=== PATIENT | male | born 1995 | race Two or more races ===

== ENCOUNTER 2020-12-21 21:18 | Observation (INO) | payer SELFPAY ==
[~2020-12-21] VITALS: Ht 167.6 cm; Wt 97.3 kg
[2020-12-21] MEDS ORDERED: LIDOCAINE 1% Multi-Dose 20 ML VIAL. INJ ONE (21:45)
[2020-12-22] VITALS (10 sets, daily range): BP systolic 105–154; BP diastolic 49–97
--- NOTE | 2020-12-22 | RAD ---
Study: XR SHOULDER_RIGHT 2+ VIEWS Indication: Right shoulder injury. Comparison: None. Findings: No acute fracture. Glenohumeral and acromioclavicular joint alignment is maintained. The partially as sessed right-sided ribs are grossly intact. Somewhat irregular soft tissues at the lateral shoulder though not well evaluated by radiography. Impression: No acute fracture or malalignment at the right shoulder. Electronically signed by: KANDIS PANTOJA MD (12/21/2020 11:58 PM) [facility]
--- NOTE | 2020-12-22 00:01 | RAD ---
Study: XR HAND_LEFT 3 VIEWS Indication: Left hand injury. Comparison: None. Findings: No displaced fracture. Alignment is within normal limits. Maintained joint spaces. No retained radiop aque foreign body. Impression: No acute osseous abnormality. Electronically signed by: KANDIS PANTOJA MD (12/21/2020 11:59 PM) [facility]
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
[2020-12-22] MEDS ORDERED: fentaNYL PF VIAL 100 MCG/2 ML VIAL ONE ×4 (02:09→12:19)
[2020-12-22] MEDS ORDERED: IV NORMAL SALINE 1000ML BAG 1,000 ML IV ONE (02:15)
[2020-12-22] MEDS ORDERED: fentaNYL PF VIAL 100 MCG/2 ML VIAL IVP ONE (02:15)
[2020-12-22] MEDS ORDERED: NEOMY/BACITR/POLYMYXIN OINT PACKET. TP ONE (02:47)
[2020-12-22 03:10] LABS: BILIRUBIN,URINE NEGATIVE (NEG); CLARITY,URINE CLEAR; COLOR,URINE YELLOW; NITRITE,URINE NEGATIVE (NEG); PH,URINE 5.5 (<5.0-8.0); PROTEIN,URINE NEGATIVE (NEG-TRACE); UROBILINOGEN,URINE 0.2 mg/dL (0.2 mg/dL)
[2020-12-22 03:16] LABS: AMPHETAMINE/METHAMPHETAMINE NEG (NEG); BARBITURATES NEG (NEG); BENZODIAZEPINES NEG (NEG); CANNABINOIDS NEG (NEG); COCAINE NEG (NEG); METHADONE NEG (NEG); OPIATES NEG (NEG); PHENCYCLIDINE NEG (NEG)
[2020-12-22 03:18] LABS: BASO # 0.1 x10^3/uL (0.0-0.2); BASO % 1 % (0-3); EOS # 0.1 x10^3/uL (0.0-0.7); EOS % 1 % (0-3); HEMATOCRIT 46.6 % (39.0-53.0); LYMPH # 1.9 x10^3/uL (1.0-4.8); LYMPH % 20 % (24-48); MEAN CORPUSCULAR HEMOGLOBIN 31 pg (25-35); MEAN CORPUSCULAR HGB CONC 34 g/dL (31-37); MEAN CORPUSCULAR VOLUME 89 fL (79-100); MONO # 0.8 x10^3/uL (0.0-1.1); MONO % 8 % (0-9); NEUT % 71 % (31-73); PLATELET COUNT 301 x10^3/uL (140-400); RED BLOOD COUNT 5.25 x10^6/uL (4.30-5.70); RED CELL DISTRIBUTION WIDTH 15.5 % (11.5-14.5); WHITE BLOOD COUNT 9.9 x10^3/uL (4.0-11.0)
[2020-12-22 03:21] LABS: CALCIUM 8.3 mg/dL (8.5-10.1); CREATININE 1.1 mg/dL (0.7-1.3); GFR 80.3
[2020-12-22 03:26] LABS: BACTERIA,URINE 0 /HPF (0-FEW); RBC,URINE 0 /HPF (0-2); WBC,URINE 0 /HPF (0-4)
[2020-12-22 03:27] LABS: ALBUMIN 3.7 g/dL (3.4-5.0); ALBUMIN/GLOBULIN RATIO 0.9 (1.0-1.7); TOTAL BILIRUBIN 0.5 mg/dL (0.2-1.0); TOTAL PROTEIN 7.6 g/dL (6.4-8.2)
[2020-12-22] MEDS ORDERED: ONDANSETRON PF 4 MG/2 ML VIAL. IV PRN ×2 (03:45→12:00)
[2020-12-22] MEDS: fentaNYL PF VIAL 100 MCG/2 ML VIAL IV PRN ×3 (04:30→19:23)
[2020-12-22] MEDS: IV NORMAL SALINE 1000ML BAG 1,000 ML IV SCH ×4 (04:33→22:22)
--- NOTE | 2020-12-22 07:41 | NUR ---
ADMIT NOTE The patient, MADELIN GASPAR, 25 y/o, M admitted by KEITH CALDERON MD, was given written information regarding hospital policies, unit procedures and contact persons. Patient orientated to room, unable to fully discuss plan of care and admit packet d/t language barrier; language interpreting service does not have a non destructive evaluation specialist for patient's primary language/dialect which pt identifies as "Turkic". Admission wound photos complete and consults notified. Patient reports no known allergies. Patient resting in bed, bed in lowest/locked position, and call light within reach; no other needs voiced at this time.
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
[2020-12-22] MEDS ORDERED: ROCURONIUM 50 MG/5 ML VIAL. ONE (09:17)
[2020-12-22] MEDS ORDERED: PROPOFOL 10 MG/ML (20ML) VIAL. IV ONE (09:17)
[2020-12-22] MEDS ORDERED: DEXAMETHASONE SOD PHOS 4 MG/ML VIAL ONE ×2 (09:17→10:01)
[2020-12-22] MEDS ORDERED: ONDANSETRON PF 4 MG/2 ML VIAL. ONE (09:17)
[2020-12-22] MEDS ORDERED: SUCCINYLCHOLINE 200 MG/10 ML VIAL. ONE (09:17)
[2020-12-22] MEDS ORDERED: LIDOCAINE 2% PF 5 ML VIAL. ONE (09:17)
[2020-12-22] MEDS ORDERED: MIDAZOLAM HCL/PF 2 MG/2 ML VIAL. ONE (09:19)
[2020-12-22] MEDS ORDERED: EPINEPHrine VIAL 30 MG/30 ML VIAL ONE (09:20)
[2020-12-22] MEDS ORDERED: BUPIVACAINE-EPI 0.25% 30 ML VIAL KIT. ONE ×2 (09:20)
--- NOTE | 2020-12-22 10:02 | NUR ---
SW following. Discussed with RN, pt from home with family, room air, npo, rapid COVID-19 negative. Pt having surgery today. Pt is Turkic speaking. SW will continue to follow.
[2020-12-22] MEDS ORDERED: GLYCOPYRROLATE 1 MG/5 ML VIAL. ONE (10:37)
[2020-12-22] MEDS ORDERED: NEOSTIGMINE METHYLSULFATE 5 MG/5 ML SYRINGE. ONE (10:38)
[2020-12-22] MEDS ORDERED: DIPH,PERTUSS(ACELL),TET VAC/PF 0.5 ML SYRINGE. VAX IM ONE (10:45)
[2020-12-22] MEDS ORDERED: SEVOFLURANE 61 TO 120 MINUTES. IH ONE (10:55)
[2020-12-22] MEDS ORDERED: KETOROLAC 30 MG/ML VIAL. ONE (11:02)
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
[2020-12-22] MEDS ORDERED: SODIUM PHOSPHATES 19/7GM 133 ML ENEMA. PR PRN (12:00)
[2020-12-22] MEDS ORDERED: 0.9 % SODIUM CHLORIDE 10 ML DISP.SYRIN. IV PRN (12:00)
[2020-12-22] MEDS ORDERED: LORazepam 0.5 MG TABLET PO PRN (12:00)
[2020-12-22] MEDS ORDERED: ZOLPIDEM 5 MG TABLET. PO PRN (12:00)
[2020-12-22] MEDS ORDERED: ACETAMINOPHEN 325 MG TABLET. PO PRN (12:00)
[2020-12-22] MEDS ORDERED: DOCUSATE SODIUM 100 MG CAPSULE. PO PRN (12:00)
[2020-12-22] MEDS ORDERED: IPRATRPIUM/ALBUTEROL 0.5/2.5MG 3 ML NEBU. NEB SCH (12:00)
[2020-12-22] MEDS ORDERED: guaiFENesin ORAL 200 MG/10 ML LIQUID. PO PRN (12:00)
[2020-12-22] MEDS: fentaNYL PF VIAL 100 MCG/2 ML VIAL IVP PRN ×2 (12:10→12:24)
[2020-12-22] MEDS ORDERED: ALBUTEROL SULFATE 2.5 MG/3 ML NEBU. NEB PRN (14:15)
--- NOTE | 2020-12-22 14:41 | PDOC2 ---
CONSULT Date of Consult Date of Consult DATE: 12/22/20 TIME: 14:37 Reason for Consult Reason for Consult: stabbing right shoulder Referring Physician Referring Physician: Dr. Clinton Identification/Chief Complaint Chief Complaint right shoulder pain Source Source: Chart review, Patient History of Present Illness Reason for Visit: 25 yo M s/p stabbing right shoulder. Pt is seen in post op s/p washout by ortho. Pt somewhat sedated but reports being comfortable and able to follow commands. Past Medical History Rheumatologic: No pertinent hx Infectious disease: No pertinent hx ENT: No pertinent hx Renal/: No pertinent hx Endocrine: No pertinent hx Past Surgical History Past Surgical History: Other (shoulder washout) Family History Family History: Hypertension Social History <1 pack per day ALCOHOL: heavy Drugs: None Current Problem List Problem List Problems Medical Problems: (1) Alcohol intoxication Status: Acute (2) Laceration without foreign body of right shoulder, initial encounter Status: Acute Current Medications Current Medications Current Medications Lidocaine HCl (Lidocaine 1% 20ml Vial) 40 ml 1X ONCE INJ Last administered on 12/21/20at 22:30; Start 12/21/20 at 21:45; Stop 12/21/20 at 21:46; Status DC Cefazolin Sodium/ Dextrose 50 ml @ 100 mls/hr 1X ONCE IV Last administered on 12/21/20at 22:30; Start 12/21/20 at 22:30; Stop 12/21/20 at 22:59; Status DC Fentanyl Citrate (Fentanyl 2ml Vial) 100 mcg STK-MED ONCE .ROUTE ; Start 12/22/20 at 02:09; Stop 12/22/20 at 02:09; Status DC Fentanyl Citrate (Fentanyl 2ml Vial) 100 mcg 1X ONCE IVP Last administered on 12/22/20at 02:15; Start 12/22/20 at 02:15; Stop 12/22/20 at 02:17; Status DC Sodium Chloride 1,000 ml @ 0 mls/hr 1X ONCE IV Last administered on 12/22/20at 02:16; Start 12/22/20 at 02:15; Stop 12/22/20 at 02:17; Status DC Neomycin/ Polymyxin/ Bacitracin (Triple Antibiotic Ointment) 1 pkt STK-MED ONCE TP ; Start 12/22/20 at 02:47; Stop 12/22/20 at 02:47; Status DC Ondansetron HCl (Zofran) 4 mg PRN Q8HRS PRN IV NAUSEA/VOMITING; Start 12/22/20 at 03:45; Stop 12/23/20 at 03:44 Fentanyl Citrate (Fentanyl 2ml Vial) 50 mcg PRN Q1HR PRN IV PAIN Last administe red on 12/22/20at 07:15; Start 12/22/20 at 03:45; Stop 12/23/20 at 03:44 Sodium Chloride 1,000 ml @ 75 mls/hr [id number] IV Last administered on 12/22/20at 04:33; Start 12/22/20 at 03:45; Stop 12/23/20 at 03:44 Propofol (Diprivan) 200 mg STK-MED ONCE IV ; Start 12/22/20 at 09:17; Stop 12/22/20 at 09:17; Status DC Lidocaine HCl (Lidocaine Pf 2% Vial) 5 ml STK-MED ONCE .ROUTE ; Start 12/22/20 at 09:17; Stop 12/22/20 at 09:17; Status DC Ondansetron HCl (Zofran) 4 mg STK-MED ONCE .ROUTE ; Start 12/22/20 at 09:17; Stop 12/22/20 at 09:17; Status DC Dexamethasone Sodium Phosphate (Decadron) 4 mg STK-MED ONCE .ROUTE ; Start 12/22/20 at 09:17; Stop 12/22/20 at 09:17; Status DC Succinylcholine Chloride (Anectine) 200 mg STK-MED ONCE .ROUTE ; Start 12/22/20 at 09:17; Stop 12/22/20 at 09:18; Status DC Rocuronium [place] (Zemuron) 50 mg STK-MED ONCE .ROUTE ; Start 12/22/20 at 09:17; Stop 12/22/20 at 09:18; Status DC Fentanyl Citrate (Fentanyl 2ml Vial) 100 mcg STK-MED ONCE .ROUTE ; Start 12/22/20 at 09:18; Stop 12/22/20 at 09:18; Status DC Midazolam HCl (Versed) 2 mg STK-MED ONCE .ROUTE ; Start 12/22/20 at 09:19; Stop 12/22/20 at 09:20; Status DC Cefazolin Sodium/ Dextrose 50 ml @ 100 mls/hr 1X PREOP PRN IV SEE COMMENTS Last administered on 12/22/20at 09:40; Start 12/22/20 at 09:30; Stop 12/22/20 at 14:18; Status DC Epinephrine HCl (Adrenalin) 30 mg STK-MED ONCE .ROUTE Last administered on 12/22/20at 10:20; Start 12/22/20 at 09:20; Stop 12/22/20 at 09:20; Status DC Bupivacaine HCl/ Epinephrine Bitart (Sensorcain-Epi 0.25% Kit) 30 ml STK-MED ON CE .ROUTE Last administered on 12/22/20at 10:20; Start 12/22/20 at 09:20; Stop 12/22/20 at 09:20; Status DC Bupivacaine HCl/ Epinephrine Bitart (Sensorcain-Epi 0.25% Kit) 30 ml STK-MED ONCE .ROUTE Last administered on 12/22/20at 10:20; Start 12/22/20 at 09:20; Stop 12/22/20 at 09:20; Status DC Dexamethasone Sodium Phosphate (Decadron) 4 mg STK-MED ONCE .ROUTE ; Start 12/22/20 at 10:01; Stop 12/22/20 at 10:01; Status DC Fentanyl Citrate (Fentanyl 2ml Vial) 100 mcg STK-MED ONCE .ROUTE ; Start 12/22/20 at 10:34; Stop 12/22/20 at 10:34; Status DC Glycopyrrolate (Robinul) 1 mg STK-MED ONCE .ROUTE ; Start 12/22/20 at 10:37; Stop 12/22/20 at 10:38; Status DC Neostigmine [place] (Neostigmine Methylsulfate) 5 mg STK-MED ONCE .ROUTE ; Start 12/22/20 at 10:38; Stop 12/22/20 at 10:38; Status DC Diphtheria/ Tetanus/Acell Pertussis (ADACEL TDap SYRINGE) 0.5 ml ONCE ONCE VAX IM ; Start 12/22/20 at 10:45; Stop 12/22/20 at 10:46; Status DC Sevoflurane (Ultane) 60 ml STK-MED ONCE IH ; Start 12/22/20 at 10:55; Stop 12/22/20 at 10:55; Status DC Ketorolac Tromethamine (Toradol 30mg Vial) 30 mg STK-MED ONCE .ROUTE ; Start 12/22/20 at 11:02; Stop 12/22/20 at 11:02; Status DC Cefazolin Sodium/ Dextrose 50 ml @ 100 mls/hr Q6H IV ; Start 12/22/20 at 16:00; Stop 12/23/20 at 04:29 Acetaminophen/ Hydrocodone Bitart (Lortab 7.5/325) 1 tab PRN Q4HRS PRN PO MODERATE PAIN; Start 12/22/20 at 11:30 Acetaminophen/ Hydrocodone Bitart (Lortab 7.5/325) 2 tab PRN Q4HRS PRN PO SEVERE PAIN; Start 12/22/20 at 11:30 Sodium Chloride (Normal Saline Flush) 3 ml QSHIFT PRN IV AFTER MEDS AND BLOOD DRAWS; Start 12/22/20 at 12:00 Sodium Chloride 1,000 ml @ 100 mls/hr Q10H IV ; Start 12/22/20 at 12:00 Ondansetron HCl (Zofran) 4 mg PRN Q4HRS PRN IV NAUSEA/VOMITING; Start 12/22/20 at 12:00 Zolpidem Tartrate (Ambien) 5 mg PRN QHS PRN PO INSOMNIA; Start 12/22/20 at 12:00 Acetaminophen (Tylenol) 650 mg PRN Q4HRS PRN PO TEMP OVER 100.4F OR MILD PAIN; Start 12/22/20 at 12:00 Sodium Monofluorophosphate (Fleet Adult) 133 ml PRN DAILY PRN OK CONSTIPATION; Start 12/22/20 at 12:00 Docusate Sodium (Colace) 100 mg PRN BID PRN PO HARD STOOLS; Start 12/22/20 at 12:00 Albuterol/ Ipratropium (Duoneb) 3 ml Q4H NEB ; Start 12/22/20 at 12:00; Stop 12/22/20 at 14:00; Status DC Guaifenesin (Robitussin) 200 mg PRN Q4HRS PRN PO COUGH; Start 12/22/20 at 12:00 Lorazepam (Ativan) 0.5 mg PRN Q4HRS PRN PO ANXIETY / AGITATION; Start 12/22/20 at 12:00 Fentanyl Citrate (Fentanyl 2ml Vial) 50 mcg PRN Q5MIN PRN IVP pain Last administered on 12/22/20at 12:24; Start 12/22/20 at 12:15 Fentanyl Citrate (Fentanyl 2ml Vial) 100 mcg STK-MED ONCE .ROUTE ; Start 12/22/20 at 12:19; Stop 12/22/20 at 12:19; Status DC Albuterol Sulfate (Ventolin Neb Soln) 2.5 mg PRN Q4HRS PRN NEB SHORTNESS OF BREATH; Start 12/22/20 at 14:15 Allergies Allergies: Coded Allergies: No Known Drug Allergies (Unverified , 04/11/15) ROS Review of System unobtainable Physical Exam General: Alert, Cooperative, No acute distress HEENT: Atraumatic Lungs: Normal air movement Abdomen: Soft, No tenderness Extremities: Other (right shoulder dressing in place, able to move all extremities) Vitals VITALS Vital Signs Date Time Temp Pulse Resp B/P (MAP) Pulse Ox O2 Delivery O2 Flow Rate FiO2 12/22/20 12:24 96 Room Air 12/22/20 12:10 98.8 60 15 117/64 98.8 12/22/20 11:10 8 Labs Labs Laboratory Tests Test 12/21/20 21:45 12/22/20 02:00 12/22/20 02:35 White Blood Count 9.9 x10^3/uL (4.0-11.0) Red Blood Count 5.25 x10^6/uL (4.30-5.70) Hemoglobin 16.0 g/dL (13.0-17.5) Hematocrit 46.6 % (39.0-53.0) Mean Corpuscular Volume 89 fL (79-100) Mean Corpuscular Hemoglobin 31 pg (25-35) Mean Corpuscular Hemoglobin Concent 34 g/dL (31-37) Red Cell Distribution Width 15.5 % (11.5-14.5) Platelet Count 301 x10^3/uL (140-400) Neutrophils (%) (Auto) 71 % (31-73) Lymphocytes (%) (Auto) 20 % (24-48) Monocytes (%) (Auto) 8 % (0-9) Eosinophils (%) (Auto) 1 % (0-3) Basophils (%) (Auto) 1 % (0-3) Neutrophils # (Auto) 7.0 x10^3/uL (1.8-7.7) Lymphocytes # (Auto) 1.9 x10^3/uL (1.0-4.8) Monocytes # (Auto) 0.8 x10^3/uL (0.0-1.1) Eosinophils # (Auto) 0.1 x10^3/uL (0.0-0.7) Basophils # (Auto) 0.1 x10^3/uL (0.0-0.2) Sodium Level 139 mmol/L (136-145) Potassium Level 4.0 mmol/L (3.5-5.1) Chloride Level 101 mmol/L (98-107) Carbon Dioxide Level 24 mmol/L (21-32) Anion Gap 14 (6-14) Blood Urea Nitrogen 13 mg/dL (8-26) Creatinine 1.1 mg/dL (0.7-1.3) Estimated GFR (Cockcroft-Gault) 80.3 BUN/Creatinine Ratio 12 (6-20) Glucose Level 78 mg/dL (70-99) Calcium Level 8.3 mg/dL (8.5-10.1) Total Bilirubin 0.5 mg/dL (0.2-1.0) Aspartate Amino Transf (AST/SGOT) 33 U/L (15-37) Alanine Aminotransferase (ALT/SGPT) 35 U/L (16-63) Alkaline Phosphatase 83 U/L (46-116) Total Protein 7.6 g/dL (6.4-8.2) Albumin 3.7 g/dL (3.4-5.0) Albumin/Globulin Ratio 0.9 (1.0-1.7) Ethyl Alcohol Level 197 mg/dL (0-10) Urine Color Yellow Urine Clarity Clear Urine pH 5.5 (<5.0-8.0) Urine Specific [place] 1.010 (1.000-1.030) Urine Protein Negative mg/dL (NEG-TRACE) Urine Glucose (UA) Negative mg/dL (NEG) Urine Ketones (Stick) Negative mg/dL (NEG) Urine Blood Negative (NEG) Urine Nitrite Negative (NEG) Urine Bilirubin Negative (NEG) Urine Urobilinogen Dipstick 0.2 mg/dL (0.2 mg/dL) Urine Leukocyte Esterase Negative (NEG) Urine RBC 0 /HPF (0-2) Urine WBC 0 /HPF (0-4) Urine Squamous Epithelial Cells Few /LPF Urine Bacteria 0 /HPF (0-FEW) Urine Opiates Screen Neg (NEG) Urine Methadone Screen Neg (NEG) Urine Barbiturates Neg (NEG) Urine Phencyclidine Screen Neg (NEG) Urine Amphetamine/Methamphetamine Neg (NEG) Urine Benzodiazepines Screen Neg (NEG) Urine Cocaine Screen Neg (NEG) Urine Cannabinoids Screen Neg (NEG) Urine Ethyl Alcohol Pos (NEG) SARS-CoV-2 RNA (TRE) Negative (Negative) SARS-CoV-2 Antigen (Rapid) Negative (NEGATIVE) Laboratory Tests Test 12/21/20 21:45 12/22/20 02:00 12/22/20 02:35 White Blood Count 9.9 x10^3/uL (4.0-11.0) Red Blood Count 5.25 x10^6/uL (4.30-5.70) Hemoglobin 16.0 g/dL (13.0-17.5) Hematocrit 46.6 % (39.0-53.0) Mean Corpuscular Volume 89 fL (79-100) Mean Corpuscular Hemoglobin 31 pg (25-35) Mean Corpuscular Hemoglobin Concent 34 g/dL (31-37) Red Cell Distribution Width 15.5 % (11.5-14.5) Platelet Count 301 x10^3/uL (140-400) Neutrophils (%) (Auto) 71 % (31-73) Lymphocytes (%) (Auto) 20 % (24-48) Monocytes (%) (Auto) 8 % (0-9) Eosinophils (%) (Auto) 1 % (0-3) Basophils (%) (Auto) 1 % (0-3) Neutrophils # (Auto) 7.0 x10^3/uL (1.8-7.7) Lymphocytes # (Auto) 1.9 x10^3/uL (1.0-4.8) Monocytes # (Auto) 0.8 x10^3/uL (0.0-1.1) Eosinophils # (Auto) 0.1 x10^3/uL (0.0-0.7) Basophils # (Auto) 0.1 x10^3/uL (0.0-0.2) Sodium Level 139 mmol/L (136-145) Potassium Level 4.0 mmol/L (3.5-5.1) Chloride Level 101 mmol/L (98-107) Carbon Dioxide Level 24 mmol/L (21-32) Anion Gap 14 (6-14) Blood Urea Nitrogen 13 mg/dL (8-26) Creatinine 1.1 mg/dL (0.7-1.3) Estimated GFR (Cockcroft-Gault) 80.3 BUN/Creatinine Ratio 12 (6-20) Glucose Level 78 mg/dL (70-99) Calcium Level 8.3 mg/dL (8.5-10.1) Total Bilirubin 0.5 mg/dL (0.2-1.0) Aspartate Amino Transf (AST/SGOT) 33 U/L (15-37) Alanine Aminotransferase (ALT/SGPT) 35 U/L (16-63) Alkaline Phosphatase 83 U/L (46-116) Total Protein 7.6 g/dL (6.4-8.2) Albumin 3.7 g/dL (3.4-5.0) Albumin/Globulin Ratio 0.9 (1.0-1.7) Ethyl Alcohol Level 197 mg/dL (0-10) Urine Color Yellow Urine Clarity Clear Urine pH 5.5 (<5.0-8.0) Urine Specific [place] 1.010 (1.000-1.030) Urine Protein Negative mg/dL (NEG-TRACE) Urine Glucose (UA) Negative mg/dL (NEG) Urine Ketones (Stick) Negative mg/dL (NEG) Urine Blood Negative (NEG) Urine Nitrite Negative (NEG) Urine Bilirubin Negative (NEG) Urine Urobilinogen Dipstick 0.2 mg/dL (0.2 mg/dL) Urine Leukocyte Esterase Negative (NEG) Urine RBC 0 /HPF (0-2) Urine WBC 0 /HPF (0-4) Urine Squamous Epithelial Cells Few /LPF Urine Bacteria 0 /HPF (0-FEW) Urine Opiates Screen Neg (NEG) Urine Methadone Screen Neg (NEG) Urine Barbiturates Neg (NEG) Urine Phencyclidine Screen Neg (NEG) Urine Amphetamine/Methamphetamine Neg (NEG) Urine Benzodiazepines Screen Neg (NEG) Urine Cocaine Screen Neg (NEG) Urine Cannabinoids Screen Neg (NEG) Urine Ethyl Alcohol Pos (NEG) SARS-CoV-2 RNA (TRE) Negative (Negative) SARS-CoV-2 Antigen (Rapid) Negative (NEGATIVE) Images Images hand and shoulder xray wnl Assessment/Plan Assessment/Plan stab right shoulder appreciate care per ortho will given tetanus shot will defer other care to ortho. Will sign off, but please call for questions. Thanks for consult! KALLIE NGUYEN MD December 22, 2020 14:41
[2020-12-22] MEDS: HYDROcodone/APAP 7.5/325MG 1 TAB TABLET PO PRN ×2 (15:57→21:42)
--- NOTE | 2020-12-22 16:06 | NUR ---
Wound Care: Surgical procedure with Dr. Grissom today. Will check chart 5/6 for updates to treatment plan.
[2020-12-23] MEDS: fentaNYL PF VIAL 100 MCG/2 ML VIAL IV PRN (00:20)
[2020-12-23] MEDS: HYDROcodone/APAP 7.5/325MG 1 TAB TABLET PO PRN ×4 (02:50→21:56)
[2020-12-23 03:11] VITALS: BP 138/76
[2020-12-23 07:00] VITALS: BP_SYST 150; BP_SYST 160; BP_DIAS 78; BP_DIAS 86
[2020-12-23 07:26] LABS: BASO % 0 % (0-3); EOS % 0 % (0-3); HEMATOCRIT 43.9 % (39.0-53.0); HEMOGLOBIN 14.7 g/dL (13.0-17.5); LYMPH # 0.7 x10^3/uL (1.0-4.8); LYMPH % 8 % (24-48); MEAN CORPUSCULAR HEMOGLOBIN 30 pg (25-35); MEAN CORPUSCULAR HGB CONC 34 g/dL (31-37); MEAN CORPUSCULAR VOLUME 90 fL (79-100); MONO # 0.5 x10^3/uL (0.0-1.1); MONO % 5 % (0-9); NEUT # 8.2 x10^3/uL (1.8-7.7); NEUT % 87 % (31-73); PLATELET COUNT 271 x10^3/uL (140-400); RED BLOOD COUNT 4.87 x10^6/uL (4.30-5.70); RED CELL DISTRIBUTION WIDTH 15.7 % (11.5-14.5); WHITE BLOOD COUNT 9.4 x10^3/uL (4.0-11.0)
[2020-12-23 07:45] LABS: ALBUMIN 2.9 g/dL (3.4-5.0); ALBUMIN/GLOBULIN RATIO 0.8 (1.0-1.7); CALCIUM 7.8 mg/dL (8.5-10.1); GFR 89.6; POTASSIUM 4.1 mmol/L (3.5-5.1); TOTAL BILIRUBIN 0.5 mg/dL (0.2-1.0); TOTAL PROTEIN 6.4 g/dL (6.4-8.2)
[2020-12-23] MEDS: IV NORMAL SALINE 1000ML BAG 1,000 ML IV SCH ×2 (08:26→22:07)
[2020-12-23] MEDS: MULTIVITAMIN with MINERAL TABLET. PO SCH (08:28)
[2020-12-23 09:09] LABS: % BANDS 5 % (0-9); % LYMPHS 15 % (24-48); % MONOS 5 % (0-10); % SEGS 75 % (35-66); PLT ESTIMATE ADEQUATE (ADEQUATE)
[2020-12-23 11:00] VITALS: BP 155/84
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
[2020-12-23 15:00] VITALS: BP 130/58
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
[2020-12-23 19:00] VITALS: BP 123/64
[2020-12-23 23:00] VITALS: BP 145/81
[2020-12-24 03:00] VITALS: BP 154/68
[2020-12-24] MEDS: IV NORMAL SALINE 1000ML BAG 1,000 ML IV SCH (05:31)
[2020-12-24 07:11] VITALS: BP 111/74
[2020-12-24] MEDS: MULTIVITAMIN with MINERAL TABLET. PO SCH (07:43)
[2020-12-24] MEDS: HYDROcodone/APAP 7.5/325MG 1 TAB TABLET PO PRN ×2 (07:44→17:00)
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
[2020-12-24 10:28] VITALS: BP 131/91
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
[2020-12-24] MEDS ORDERED: HYDR-2765 PO (13:55)
[2020-12-24] MEDS ORDERED: DOCU-153 PO (13:55)
[2020-12-24] MEDS ORDERED: MULT1TAB92 PO (13:55)
--- NOTE | 2020-12-24 13:57 | DISCH ---
DISCHARGE INSTRUCTIONS Condition on Discharge Condition on Discharge: Stable Activity After Discharge Activity Instructions for Disc: Activity as tolerated Bathing Instructions: Shower-keep dressing dry, No Tub Bath until see Lifting Instructions after Dis: No heavy lifting, No pulling or pushing, Do not lift >10 pounds Driving Instructions after Dis: Do not drive, No driving for 2 weeks Weight Bearing Status after Di: As tolerated Diet after Discharge Diet after Discharge: Regular Wound Incision Care Wound Care Equipment: Dressings Checks after Discharge Checks after discharge: Check blood press - daily Contacting the DRZack after DC Call your doctor for: If your condition worsens Follow-Up Follow up with: dr casas next week Treatment/Equipment after DC Adaptive Equipment Issued: None NEHA HOWE MD December 24, 2020 13:57
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
[2020-12-24 14:50] VITALS: BP 152/100
[2020-12-24 14:51] VITALS: BP 143/99
--- NOTE | 2020-12-24 16:16 | NUR ---
removed original surgicl dressing on right shoulder. sutures intact cleansed with chlor prep then [place] replaced. awaiting family
--- NOTE | 2020-12-24 17:09 | NUR ---
reviewed written discharge instructions with patients family. gave them his follow up apppt with Dr. Grissom. may shower with antibacterial soap. no lifting with right arm pat sutures (incisions dry)script given instructed to take stool softener with narcotic9 constipation) . showed and gave phone number to reschedule if needed. all questions answered. pain medication given for trip home (1.5 hrs)
== END 2020-12-24 17:14 | disposition home or self-care (01) ==
LOC: ER 21:18 → EEVIPCON 12-22 03:27 → 4 NORTH 12-22 03:27
PROVIDERS: ADMIT Internal Medicine; ATTEND Internal Medicine
DX: S41.011A Laceration without foreign body of right shoulder, initial encounter (principal); S41.112A Laceration without foreign body of left upper arm, initial encounter; S61.412A Laceration without foreign body of left hand, initial encounter; S61.539A Puncture wound without foreign body of unspecified wrist, initial encounter; F10.129 Alcohol abuse with intoxication, unspecified; E66.01 Morbid (severe) obesity due to excess calories; F17.210 Nicotine dependence, cigarettes, uncomplicated; Z79.899 Other long term (current) drug therapy; Z23 Encounter for immunization; Z68.34 Body mass index [BMI] 34.0-34.9, adult; X99.1XXA Assault by knife, initial encounter; Y93.89 Activity, other specified; Y92.89 Other specified places as the place of occurrence of the external cause; Y99.8 Other external cause status
CPT/HCPCS: 12002; 13121; 29822; 36415; 71046; 73030; 73130; 80053; 80307; 81001; 85007; 85025; 87426; 90471; 90715; 94760; 96361; 96365; 96366; 96375; 96376; 97110; 97116; 97162; 97166; 97530; 97535; 99284; A4565; A4930; G0378; G0480; J0171; J0330; J0690; J1100; J1885; J2250; J2704; J2710; J3010; J3490; J7030; U0003; U0005; A4452; G0379; J2405